=== PATIENT | female | born 1995 | race Caucasian/White ===

== ENCOUNTER 2022-04-16 04:17 | Emergency (ER) | payer OTHER ==
[~2022-04-16] VITALS: Ht 167.6 cm; Wt 63.5 kg
[2022-04-16] MEDS ORDERED: FOCALIN XR20 MG PO (04:25)
[2022-04-16] MEDS ORDERED: EFFEXOR XR37.5 MG PO (04:25)
[2022-04-16] MEDS ORDERED: PEPCID AC20 MG PO (08:39)
[2022-04-16] MEDS ORDERED: INTESTINEX680 M1 PO (08:39)
[2022-04-16] MEDS ORDERED: LEVSIN0.125 MG PO (08:39)
== END 2022-04-16 08:57 | disposition home or self-care (01) ==
LOC: ER 04:17
DX: K52.9 Noninfective gastroenteritis and colitis, unspecified (principal); A05.9 Bacterial foodborne intoxication, unspecified